=== PATIENT | female | born 2000 | race Caucasian/White ===

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

== ENCOUNTER 2022-11-23 15:33 | Emergency (ER) | payer OTHER ==
[2022-11-23] MEDS ORDERED: Sodium Chloride 0.9% 1,000 ML IV STA (16:13)
[2022-11-23] MEDS ORDERED: Sodium Chloride 0.9% 10 ML Syringe FLUSH PRN (16:13)
[2022-11-23 16:19] LABS: BASOPHILS ABSOLUTE AUTO 0.05 K/mm3 (0.01-0.08); BASOPHILS PERCENT AUTO 0.4 % (0.1-1.2); EOSINOPHILS PERCENT AUTO 1.8 (0.7-5.8); HEMATOCRIT 41.2 % (34.1-44.9); HEMOGLOBIN 13.9 gm/dl (11.2-15.7); IMMATURE GRAN ABSOLUTE AUTO 0.02 K/mm3 (0.00-0.10); IMMATURE GRAN PERCENT AUTO 0.2 % (<=1.0); LYMPHOCYTES ABSOLUTE AUTO 4.26 K/mm3 (1.18-3.74); LYMPHOCYTES PERCENT AUTO 37.7 % (19.3-51.7); MEAN CORPUSCULAR HEMOGLOBIN 28.3 pg (25.6-32.2); MEAN CORPUSCULAR HGB CONC 33.7 g/dl (32.2-35.5); MEAN CORPUSCULAR VOLUME 83.9 fl (79.4-94.8); MEAN PLATELET VOLUME 8.5 fl (9.4-12.3); MONOCYTES ABSOLUTE AUTO 0.93 K/mm3 (0.24-0.36); MONOCYTES PERCENT AUTO 8.2 % (4.7-12.5); NEUTROPHILS ABSOLUTE AUTO 5.85 K/mm3 (1.56-6.13); NEUTROPHILS PERCENT AUTO 51.7 % (34.0-71.1); PLATELET COUNT,PLT 385 K/mm3 (182-369); RED BLOOD CELL COUNT 4.91 M/mm3 (3.98-5.22); WHITE BLOOD CELL COUNT,WBC 11.31 K/mm3 (3.98-10.04)
[2022-11-23 16:54] LABS: A/G RATIO 0.8 (1-2); ALBUMIN 3.3 g/dl (3.4-5.0); ANION GAP 13.4 (5-15); BILIRUBIN TOTAL 0.3 mg/dL (0.2-1.0); BUN/CREATININE RATIO 18.6 (14-18); C-REACTIVE PROTEIN 2.1 mg/dL (<1.0); CALCIUM 8.7 mg/dL (8.5-10.1); CREATININE 0.7 mg/dL (0.55-1.02); EST CRCL DRUG DOSING (CG) 110.7 mL/min; POTASSIUM,K 3.4 mEq/L (3.5-5.1); PROTEIN TOTAL,TP 7.4 g/dl (6.4-8.2)
== END 2022-11-23 17:38 | disposition home or self-care (01) ==
LOC: JD.ED 15:33
DX: B34.9 Viral infection, unspecified (principal)
CPT/HCPCS: 36415; 80053; 85025; 86140; 87651; 96360; 99285; J3490; J7030; 93010; 99283

== ENCOUNTER 2023-09-30 10:21 | Emergency (ER) | payer OTHER | END 2023-09-30 11:40 | disposition home or self-care (01) | LOC: JD.ED 10:21 | DX: L02.11 Cutaneous abscess of neck (principal); L76.82 Other postprocedural complications of skin and subcutaneous tissue; Z79.899 Other long term (current) drug therapy | CPT/HCPCS: 99283 ==